=== PATIENT | female | born 1935 | race Hispanic/Latino ===

== ENCOUNTER 2018-02-17 14:55 | Emergency (ER) | payer MEDICARE ==
[~2018-02-17 14:55] MED LIST: ASPI-555 PO; ISOS30TA6 PO; METF-444 PO; METO-391 PO; NITR0.3T SL; SIMV40TA59 PO; SULF1TAB3 PO
[2018-02-17 15:24] LABS: BASOPHILS % (AUTO) 0.5 % (0.0-5.0); HEMATOCRIT 41.6 % (36-48); LYMPHOCYTES % (AUTO) 41.4 % (21.0-51.0); MEAN CORPUSCULAR HEMOGLOBIN 29.7 pg (27.0-33.0); MEAN CORPUSCULAR VOLUME 90.1 fL (79-99); MONOCYTES % (AUTO) 6.9 % (3.0-13.0); NEUTROPHILS % (AUTO) 49.2 % (40.0-77.0); PLATELET COUNT (AUTO) 128 K/uL (130-400); RED BLOOD CELL COUNT(AUTO) 4.62 MIL/uL (4.00-5.50); RED CELL DISTRIBUTION WIDTH 13.4 % (11.0-15.5)
[2018-02-17 15:37] LABS: CREATININE 0.7 mg/dL (0.5-1.5); POTASSIUM 3.7 mmol/L (3.5-5.1)
[2018-02-17 15:42] LABS: ALBUMIN 3.6 g/dL (3.5-5.0); BILIRUBIN,TOTAL 0.4 mg/dL (0.2-1.0); TOTAL PROTEIN, SERUM 6.8 g/dL (6.0-8.3)
[2018-02-17 16:15] LABS: APPEARANCE,URINE Clear (CLEAR); BILIRUBIN,URINE Negative (NEGATIVE); COLOR,URINE Yellow (YELLOW); GLUCOSE, URINE (UA) Negative (NEGATIVE); KETONES,URINE Negative (NEGATIVE); LEUKOCYTE ESTERASE ,URINE Negative (NEGATIVE); NITRATE,URINE Negative (NEGATIVE); OCCULT BLOOD,URINE Negative (NEGATIVE); PROTEIN,URINE Negative (NEGATIVE); UROBILINOGEN,URINE 0.2 mg/dL (0.2-1.0)
[2018-02-17] MEDS ORDERED: ACETAMINOPHEN 325 MG TAB ONE (16:44)
== END 2018-02-17 17:24 | disposition home or self-care (01) ==
LOC: EDH 14:55
DX: R51 Headache (principal); E11.9 Type 2 diabetes mellitus without complications; E78.5 Hyperlipidemia, unspecified; I10 Essential (primary) hypertension; M19.90 Unspecified osteoarthritis, unspecified site; Z88.1 Allergy status to other antibiotic agents
CPT/HCPCS: 36415; 70450; 80053; 81003; 83690; 85025; 93005

== ENCOUNTER 2018-12-12 18:08 | Emergency (ER) | payer MEDICARE ==
[2018-12-12 18:39] LABS: BASOPHILS % (AUTO) 0.9 % (0.0-5.0); EOSINOPHILS % (AUTO) 1.8 % (0.0-8.0); HEMATOCRIT 39.3 % (36-48); LYMPHOCYTES % (AUTO) 34.3 % (21.0-51.0); MEAN CORPUSCULAR HEMOGLOBIN 30.3 pg (27.0-33.0); MEAN CORPUSCULAR VOLUME 89.2 fL (79-99); NUCLEATED RED BLOOD CELLS 0.1 % (0.0-0.19); PLATELET COUNT (AUTO) 125 K/uL (130-400); RED CELL DISTRIBUTION WIDTH 13.5 % (11.0-15.5); WHITE BLOOD COUNT (AUTO) 6.2 K/uL (4.8-10.8)
[2018-12-12 18:44] LABS: CREATININE 0.7 mg/dL (0.5-1.5); POTASSIUM 3.9 mmol/L (3.5-5.1)
[2018-12-12 18:50] LABS: ALBUMIN 3.9 g/dL (3.5-5.0); BILIRUBIN,TOTAL 0.3 mg/dL (0.2-1.0); TOTAL PROTEIN, SERUM 6.7 g/dL (6.0-8.3)
[2018-12-12] MEDS ORDERED: ASPIRIN 325 MG TABLET ONE (18:50)
[2018-12-12] MEDS ORDERED: SODIUM CHLORIDE 0.9% 500ML 500 ML IV ONE (18:50)
[2018-12-12 18:53] LABS: APPEARANCE,URINE Clear (CLEAR); BILIRUBIN,URINE Negative (NEGATIVE); COLOR,URINE Yellow (YELLOW); GLUCOSE, URINE (UA) Negative (NEGATIVE); KETONES,URINE Negative (NEGATIVE); LEUKOCYTE ESTERASE ,URINE Trace (NEGATIVE); NITRATE,URINE Negative (NEGATIVE); OCCULT BLOOD,URINE Negative (NEGATIVE); PROTEIN,URINE Negative (NEGATIVE); UROBILINOGEN,URINE 0.2 mg/dL (0.2-1.0)
[2018-12-12 19:06] LABS: BACTERIA,URINE Rare /HPF (None Seen); RBC,URINE 0-1 /HPF (0-1)
[2018-12-12 19:07] LABS: SQUAMOUS EPITHELIAL CELL,UR Rare /HPF (0-2)
[2018-12-12 19:10] LABS: B-TYPE NATRIURETIC PEPTIDE 18 pg/mL (0-100)
== END 2018-12-12 21:40 | disposition home or self-care (01) ==
LOC: EDH 18:08
DX: R00.2 Palpitations (principal); R51 Headache; I10 Essential (primary) hypertension; E11.9 Type 2 diabetes mellitus without complications; E78.5 Hyperlipidemia, unspecified; M19.90 Unspecified osteoarthritis, unspecified site; Z90.49 Acquired absence of other specified parts of digestive tract; Z98.890 Other specified postprocedural states
CPT/HCPCS: 36415; 71045; 80053; 81001; 82550; 83880; 84484 ×2; 85025; 93005 ×2; 99285; J7040

== ENCOUNTER 2022-01-01 22:38 | Emergency (ER) | payer MEDICARE ==
[~2022-01-01] VITALS: Ht 144.8 cm; Wt 60.8 kg
[~2022-01-01 22:38] MED LIST changes: -ASPI-555 PO; +ASPI-556 PO; -ISOS30TA6 PO; +ISOS30TA92 PO
[2022-01-01 23:02] LABS: BASOPHILS % (AUTO) 0.4 % (0.0-5.0); EOSINOPHILS % (AUTO) 2.6 % (0.0-8.0); HEMATOCRIT 43.4 % (36-48); MEAN CORPUSCULAR HEMOGLOBIN 29.7 pg (27.0-33.0); MEAN CORPUSCULAR HGB CONC 34.1 g/dL (32.0-36.0); MONOCYTES % (AUTO) 7.6 % (3.0-13.0); PLATELET COUNT (AUTO) 152 K/uL (130-400); RED BLOOD CELL COUNT(AUTO) 4.99 MIL/uL (4.00-5.50); RED CELL DISTRIBUTION WIDTH 12.6 % (11.0-15.5); WHITE BLOOD COUNT (AUTO) 7.3 K/uL (4.8-10.8)
[2022-01-01 23:07] LABS: APPEARANCE,URINE CLEAR (CLEAR); BILIRUBIN,URINE NEGATIVE (NEGATIVE); COLOR,URINE YELLOW (YELLOW); GLUCOSE, URINE (UA) >=1000 mg/dL (NEGATIVE); KETONES,URINE NEGATIVE (NEGATIVE); LEUKOCYTE ESTERASE ,URINE NEGATIVE (NEGATIVE); NITRATE,URINE NEGATIVE (NEGATIVE); OCCULT BLOOD,URINE NEGATIVE (NEGATIVE); PROTEIN,URINE NEGATIVE (NEGATIVE); UROBILINOGEN,URINE 0.2 mg/dL (0.2-1.0)
[2022-01-01 23:14] LABS: CREATININE 0.9 mg/dL (0.5-1.5); POTASSIUM 3.9 mmol/L (3.5-5.1)
[2022-01-01 23:19] LABS: ALBUMIN 3.8 g/dL (3.5-5.0); TOTAL PROTEIN, SERUM 7.3 g/dL (6.0-8.3)
[2022-01-01 23:26] LABS: BACTERIA,URINE None Seen /HPF (None Seen); RBC,URINE None Seen /HPF (0-1); SQUAMOUS EPITHELIAL CELL,UR Rare /HPF (0-2)
[2022-01-01] MEDS ORDERED: KETOROLAC 15MG/ML VIAL (15MG/ML) ONE (23:55)
[2022-01-02] MEDS ORDERED: KETOROLAC 15MG/ML VIAL (15MG/ML) IV ONE
[2022-01-02] MEDS ORDERED: 0.9% NACL 500ML IV.SOLN 500 ML IV ONE
[2022-01-02 00:20] VITALS: BP 141/42
[2022-01-02] MEDS ORDERED: OSEL75 PO (00:21)
[2022-01-02] MEDS ORDERED: ACET-66 PO (00:21)
[2022-01-02] MEDS ORDERED: OSELTAMIVIR PHOSPHATE 75 MG CAP PO SCH (00:30)
== END 2022-01-02 00:34 | disposition home or self-care (01) ==
LOC: EDH 22:38
DX: J10.1 Influenza due to other identified influenza virus with other respiratory manifestations (principal); E86.0 Dehydration; Z20.822 Contact with and (suspected) exposure to COVID-19; E11.9 Type 2 diabetes mellitus without complications; I10 Essential (primary) hypertension; M19.90 Unspecified osteoarthritis, unspecified site; Z79.1 Long term (current) use of non-steroidal anti-inflammatories (NSAID); Z79.82 Long term (current) use of aspirin; Z79.84 Long term (current) use of oral hypoglycemic drugs; Z79.899 Other long term (current) drug therapy; Z88.1 Allergy status to other antibiotic agents; Z90.49 Acquired absence of other specified parts of digestive tract
CPT/HCPCS: 99285; 71045; 87635; 84484; 80053; 85025; 87804 ×2; 81001; 36415; 93005 ×2; 96374; C9803; J7040; J1885

== ENCOUNTER 2022-01-25 19:05 | Emergency (ER) | payer MEDICARE ==
[~2022-01-25] VITALS: Ht 134.6 cm; Wt 60.8 kg
[~2022-01-25 19:05] MED LIST changes: +ACET-66 PO; +OSEL75 PO
[2022-01-25 19:51] VITALS: BP 135/52
[2022-01-25] MEDS ORDERED: ACETAMINOPHEN 325 MG TAB PO ONE (20:00)
== END 2022-01-25 21:28 | disposition home or self-care (01) ==
LOC: EDH 19:05
DX: S80.02XA Contusion of left knee, initial encounter (principal); S80.01XA Contusion of right knee, initial encounter; M19.90 Unspecified osteoarthritis, unspecified site; E11.9 Type 2 diabetes mellitus without complications; I10 Essential (primary) hypertension; M81.0 Age-related osteoporosis without current pathological fracture; Z90.49 Acquired absence of other specified parts of digestive tract; Z98.890 Other specified postprocedural states; Z79.899 Other long term (current) drug therapy; Z79.84 Long term (current) use of oral hypoglycemic drugs; Z79.82 Long term (current) use of aspirin; Z88.1 Allergy status to other antibiotic agents; W01.0XXA Fall on same level from slipping, tripping and stumbling without subsequent striking against object, initial encounter; Y93.89 Activity, other specified; Y92.89 Other specified places as the place of occurrence of the external cause; Y99.8 Other external cause status

== ENCOUNTER 2022-06-11 18:07 | Emergency (ER) | payer OTHER, MEDICARE ==
[~2022-06-11] VITALS: Ht 147.3 cm; Wt 59.0 kg
[2022-06-11 19:18] LABS: BASOPHILS % (AUTO) 0.3 % (0.0-5.0); EOSINOPHILS % (AUTO) 0.2 % (0.0-8.0); HEMATOCRIT 37.3 % (36-48); MEAN CORPUSCULAR HEMOGLOBIN 29.6 pg (27.0-33.0); MEAN CORPUSCULAR HGB CONC 33.8 g/dL (32.0-36.0); MEAN CORPUSCULAR VOLUME 87.6 fL (79-99); MONOCYTES % (AUTO) 3.9 % (3.0-13.0); NEUTROPHILS % (AUTO) 90.3 % (40.0-77.0); PLATELET COUNT (AUTO) 144 K/uL (130-400); RED BLOOD CELL COUNT(AUTO) 4.26 MIL/uL (4.00-5.50); RED CELL DISTRIBUTION WIDTH 12.9 % (11.0-15.5); WHITE BLOOD COUNT (AUTO) 11.8 K/uL (4.8-10.8)
[2022-06-11 19:26] LABS: CREATININE 0.8 mg/dL (0.5-1.5); POTASSIUM 3.8 mmol/L (3.5-5.1)
[2022-06-11 19:36] LABS: ALBUMIN 3.1 g/dL (3.5-5.0); TOTAL PROTEIN, SERUM 6.4 g/dL (6.0-8.3)
[2022-06-11 19:43] VITALS: BP 121/58
[2022-06-11] MEDS ORDERED: OSEL75 PO (19:45)
[2022-06-11] MEDS ORDERED: AZIT250T9 PO (19:45)
[2022-06-11] MEDS ORDERED: ALBU90AE2 IH (19:45)
[2022-06-11] MEDS ORDERED: BENZ200C53 PO (19:45)
[2022-06-11] MEDS ORDERED: ACETAMINOPHEN 500 MG TABLET PO ONE (20:00)
[2022-06-11] MEDS ORDERED: OSELTAMIVIR PHOSPHATE 75 MG CAP PO ONE (20:00)
[2022-06-11] MEDS ORDERED: AZITHROMYCIN 250 MG TABLET PO SCH (20:00)
== END 2022-06-11 20:21 | disposition home or self-care (01) ==
LOC: EDH 18:07
DX: J10.00 Influenza due to other identified influenza virus with unspecified type of pneumonia (principal); M19.90 Unspecified osteoarthritis, unspecified site; I10 Essential (primary) hypertension; E78.00 Pure hypercholesterolemia, unspecified; E11.9 Type 2 diabetes mellitus without complications; Z20.822 Contact with and (suspected) exposure to COVID-19; Z88.1 Allergy status to other antibiotic agents; Z79.899 Other long term (current) drug therapy; Z90.49 Acquired absence of other specified parts of digestive tract; Z79.82 Long term (current) use of aspirin; Z79.84 Long term (current) use of oral hypoglycemic drugs; Z96.653 Presence of artificial knee joint, bilateral
CPT/HCPCS: 99285; 84484; 80053; 85025; 87804 ×2; 36415; 87635; 71045; 93005; C9803

== ENCOUNTER 2022-11-30 17:42 | Emergency (ER) | payer OTHER, MEDICARE ==
[~2022-11-30] VITALS: Ht 142.2 cm; Wt 60.8 kg
[~2022-11-30 17:42] MED LIST changes: +ALBU90AE2 IH; +AZIT250T9 PO; +BENZ200C53 PO
[2022-11-30] MEDS ORDERED: LIDOCAINE HCL 1% 20 ML VIAL ONE (22:37)
[2022-11-30] MEDS ORDERED: ACETAMINOPHEN 325 MG TAB PO ONE (23:00)
[2022-12-01] MEDS ORDERED: NAPR-1192 PO (00:26)
[2022-12-01 00:50] VITALS: BP 147/72
== END 2022-12-01 00:57 | disposition home or self-care (01) ==
LOC: EDH 17:42
DX: S61.012A Laceration without foreign body of left thumb without damage to nail, initial encounter (principal); S60.012A Contusion of left thumb without damage to nail, initial encounter; E78.00 Pure hypercholesterolemia, unspecified; I10 Essential (primary) hypertension; Z79.82 Long term (current) use of aspirin; Z79.84 Long term (current) use of oral hypoglycemic drugs; Z79.899 Other long term (current) drug therapy; Z88.1 Allergy status to other antibiotic agents; W23.0XXA Caught, crushed, jammed, or pinched between moving objects, initial encounter; Y93.89 Activity, other specified; Y92.89 Other specified places as the place of occurrence of the external cause; Y99.8 Other external cause status
CPT/HCPCS: 12001; 73120

== ENCOUNTER 2023-08-04 15:07 | Emergency (ER) | payer OTHER, MEDICARE ==
[~2023-08-04] VITALS: Ht 152.4 cm; Wt 59.0 kg
[~2023-08-04 15:07] MED LIST changes: +NAPR-1192 PO
[2023-08-04 15:19] VITALS: BP 131/75; PULSE 100; RESP 14; O2SAT 96
[2023-08-04] MEDS: ACETAMINOPHEN 325 MG TAB PO ONE (16:30)
[2023-08-04] MEDS ORDERED: MELO-106 PO (18:40)
[2023-08-04] MEDS ORDERED: NEOM28.36 TP (18:40)
[2023-08-04] MEDS ORDERED: NEOMY SULF/BACITRA/POLYMYXIN B 1 EACH PACKET TP ONE (18:50)
== END 2023-08-04 19:48 | disposition home or self-care (01) ==
LOC: EDH 15:07
DX: S60.312A Abrasion of left thumb, initial encounter (principal); S60.222A Contusion of left hand, initial encounter; S40.012A Contusion of left shoulder, initial encounter; S40.022A Contusion of left upper arm, initial encounter; S80.01XA Contusion of right knee, initial encounter; M19.90 Unspecified osteoarthritis, unspecified site; E78.00 Pure hypercholesterolemia, unspecified; I10 Essential (primary) hypertension; Z79.82 Long term (current) use of aspirin; Z79.899 Other long term (current) drug therapy; Z79.84 Long term (current) use of oral hypoglycemic drugs; Z88.1 Allergy status to other antibiotic agents; W18.39XA Other fall on same level, initial encounter; Y93.89 Activity, other specified; Y92.89 Other specified places as the place of occurrence of the external cause; Y99.8 Other external cause status
CPT/HCPCS: 73030; 73060; 73130; 73562

== ENCOUNTER 2025-05-13 14:56 | Emergency (ER) | payer OTHER, MEDICAID ==
[~2025-05-13] VITALS: Ht 144.8 cm; Wt 54.4 kg
[~2025-05-13 14:56] MED LIST changes: -ALBU90AE2 IH; +ALBU90AE3 IH; +MELO-106 PO; +NEOM28.36 TP
[2025-05-13] MEDS ORDERED: CLIN-141 PO (15:02)
--- NOTE | 2025-05-13 15:03 | ERN ---
ED Note History of Present Illness Stated Complaint: TOOTHACHE, BROKEN TOOTH Chief Complaint: Tooth Ache/Pain Time Seen by MD: 14:57 Dictation: PATIENT IS AN 89-YEAR-OLD FEMALE HERE WITH HER WITH COMPLAINTS OF A LOST CROWN AND TOOTH FRACTURE TO TOOTH 19. LAST WEEK. SHE HAS HAD NO FEVER NO CHILLS NO FACIAL SWELLING. WENT TO HER DENTIST THIS MORNING AND TOLD HER THAT SHE WOULD HAVE TO MAKING APPOINTMENT SO SHE CAME TO THE EMERGENCY ROOM FOR PAIN MANAGEMENT ON-CALL PRIMARY CARE DOCTORS [facility] SHE SAID SHE HAS NOT BEEN THERE. Allergies: Coded Allergies: ciprofloxacin (Unverified Allergy, Unknown, 05/07/15) Home Meds Active Scripts Clindamycin HCl (Clindamycin HCl) 300 Mg Capsule, 1 CAP PO QID for 10 Days, #40 CAP 0 Refills Prov:KAMRYN MCKAY PROGRAM ARRANGER 05/13/25 Neomy Sulf/Bacitrac Zn/Poly (Neosporin Ointment) 3.5 Mg-400 Unit-5,000 Unit/Gram Oint...g., 1 APPL TP BID for 10 Days, #15 GM Prov:AWAIS DOWLING DO 08/04/23 Meloxicam (Meloxicam) 7.5 Mg Tablet, 7.5 MG PO DAILY for 30 Days, #30 TAB Prov:AWAIS DOWLING DO 08/04/23 Naproxen (Naproxen) 375 Mg Tablet, 375 MG PO BID for 10 Days, #20 TAB 0 Refills Prov:CHEMA LIU 12/01/22 Oseltamivir Phosphate (Tamiflu) 75 Mg Cap, 75 MG PO BID for 5 Days, #10 CAP Prov:MEMO COTTONP 06/11/22 Benzonatate (Benzonatate) 200 Mg Capsule, 200 MG PO TID PRN for COUGH for 14 Days, #42 CAP Prov:MEMO COTTON V PROGRAM ARRANGER 06/11/22 Azithromycin (Azithromycin) 250 Mg Tablet, 250 MG PO DAILY for 5 Days, #6 TAB Take 1 daily until complete. Prov:MEMO COTTON V PROGRAM ARRANGER 06/11/22 Albuterol Sulfate (Proair Digihaler) 90 Mcg Aer.pw.bas, 90 MCG IH QID PRN for WHEEZING, #1 INHALER Prov:MEMO COTTON V PROGRAM ARRANGER 06/11/22 Acetaminophen (Acetaminophen) 500 Mg Tablet, 1000 MG PO QID for FEVER, #50 TAB Prov:MAKENNA REHMAN MD 01/02/22 Oseltamivir Phosphate (Tamiflu) 75 Mg Cap, 75 MG PO BID for 5 Days, #10 CAP Prov:MAKENNA REHMAN MD 01/02/22 Reported Medications Sulfamethoxazole/Trimethoprim (Sulfamethoxazole-Tmp Ds Tablet) 1 Each Tablet, 1 EACH PO BID, #7 TAB 05/07/15 Aspirin (Aspir 81) 81 Mg Tablet.dr, 81 MG PO DAILY, TAB 05/07/15 Metformin HCl (Metformin HCl) 500 Mg Tablet, 500 MG PO BID, TAB 05/07/15 Isosorbide Mononitrate (Isosorbide Mononitrate ER) 30 Mg Tab.er.24h, 30 MG PO DAILY, TAB 05/07/15 Simvastatin (ZOCOR) 40 Mg Tablet, 40 MG PO HS, TAB 05/07/15 Nitroglycerin (Nitrostat) 0.3 Mg Tab.subl, 0.2 MG SL AD for CHEST PAIN, #3 TAB.SL 05/07/15 Metoprolol Succinate (Metoprolol Succinate) 50 Mg Tab.er.24h, 50 MG PO DAILY, TAB 05/07/15 Past Medical History Past Medical History: Arthritis, High Cholesterol, Hypertension Additional Past Medical Hx: OSTEOPOROSIS Surgical History: Other Surgical History Other: STEVEN KNEE REPLACEMENTS Social History: Negative, Lives with family History: Not Applicable RN Note Reviewed/Agreed w/PFSH: Yes Review of System Dictation CONSTITUTIONAL: NEGATIVE EXCEPT FOR HPI HEAD/FACE: NEGATIVE EXCEPT FOR HPI EENT: NEGATIVE EXCEPT FOR HPI FRACTURE TOOTH MISSING CROWN RESPIRATORY: NEGATIVE EXCEPT FOR HPI GASTROINTESTINAL/ABDOMINAL: NEGATIVE EXCEPT FOR HPI GENITOURINARY: NEGATIVE EXCEPT FOR HPI MUSCULOSKELETAL: NEGATIVE EXCEPT FOR HPI INTEGUMENTARY: NEGATIVE EXCEPT FOR HPI NEUROLOGICAL/PSYCH: NEGATIVE EXCEPT FOR HPI HEMATOLOGIC/LYMPHATIC: NEGATIVE EXCEPT FOR HPI ALL SYSTEMS NEGATIVE, EXCEPT NOTED ABOVE. 13 POINT REVIEW OF SYSTEMS ASSESSED AND ALL NEGATIVE EXCEPT FOR ABOVE. Initial Vital Sign VS Vital Signs Date Time Temp Pulse Resp B/P (MAP) Pulse Ox O2 Delivery O2 Flow Rate FiO2 05/13/25 14:57 98.8 88 16 164/72 99 Room Air 0 05/13/25 15:26 21 Physical Exam Dictation VITAL SIGNS REVIEWED GENERAL APPEARANCE: ALERT, ORIENTED X 3, NO ACUTE DISTRESS, WELL DEVELOPED, NOURISHED. HEAD AND FACE: NON-TRAUMATIC. EYES: PERRL, PINK CONJUNCTIVAS, EYELID NO TRAUMA, ANTERIOR CHAMBER WITH ARCUS SENILIS. EARS: PINNAS INTACT AND NO SIGNS OF TRAUMA OR ERYTHEMA EAR CANALS CLEAR AND NO D ISCHARGE TM NO ERYTHEMA NOSE: NO DISCHARGE, NO BLEEDING. OROPHARYNX: MOUTH NORMAL, TONGUE PINK, MISSING TOOTH WITH CROWN MISSING 19. WE WILL GINGIVAL ERYTHEMA PHARYNX CLEAR,NO ERYTHEMA, TONSILS NO EXUDATES, NO ABSCESSES NOTED, MUCOUS MEMBRANE MOIST NECK: SUPPLE, NON-TENDER, NO THYROMEGALY, NO MASSES, NO JVD, NO BRUITS BREAST:DEFERRED CHEST:NO TENDERNESS, NO CREPITUS, NO PARADOXICAL MOVEMENT, NO RETRACTIONS LUNGS:CLEAR, WELL-VENTILATED, SYMMETRIC, NO RALES, NO WHEEZING, NO RHONCHI, NO STRIDOR, GOOD BREATH SOUNDS BILATERALLY HEART: REGULAR RATE, REGULAR RHYTHM, NO MURMUR, NO GALLOPS VASCULAR: NO PERIPHERAL EDEMA, ABDOMEN: SOFT, POSITIVE BOWEL SOUNDS, NONDISTENDED, NO GUARDING, NONTENDER, NO REBOUND, NO MASSES NO HEPATOMEGALY, NO SPLENOMEGALY, NO NEGRON'S SIGN, NO HERNIAS. RECTAL: DEFERRED GENITAL: DEFERRED NEUROLOGICAL: NORMAL SPEECH, MOTOR FUNCTION INTACT, SENSORY FUNCTION INTACT MUSCULOSKELETAL: NECK NONTENDER, FULL RANGE OF MOTION, BACK NONTENDER, FULL RANGE OF MOTION, EXTREMITIES: NONTENDER, FULL RANGE OF MOTION SKIN: COLOR PINK, DRY, NO TURGOR, NO RASH, NO LACERATIONS, NO ABRASIONS, NO CONTUSIONS. LYMPHATIC: DEFERRED Results (Laboratory/Radiology) Labs Reviewed?: Yes ED Course ED Course Orders Procedure Category Date Status Time Acetaminophen 500mg PHA 05/13/25 Complete Tab (Tylenol 500mg T 15:00 Current Medications Medications (Trade) Dose Ordered Sig/Dorys Route PRN Reason Start Time Stop Time Status Last Admin Dose Admin Acetaminophen (TYLenol 500MG TAB) 1,000 mg ONCE ONCE PO 05/13/25 15:00 05/13/25 15:03 DC 05/13/25 15:21 Vital Signs Date Time Temp Pulse Resp B/P (MAP) Pulse Ox O2 Delivery O2 Flow Rate FiO2 05/13/25 15:26 98.8 82 16 153/68 99 Room Air* 0 21 05/13/25 14:57 98.8 88 16 164/72 99 Room Air 0 Medical Decision Making MDM 1502/NO LABS OR IMAGING INDICATED. MEDICAL DECISION-MAKING BASED ON HPI AND ASSESSMENT PATIENT WILL BE PROVIDED WITH CLINDAMYCIN TOLD SEE HER DOCTOR AT [facility] HER DENTIST FOR FOLLOW UP DX & DISP Disposition: Discharge Departure Impression: Primary Impression: Tooth fracture Condition: Stable Scripts Clindamycin HCl (Clindamycin HCl) 300 Mg Capsule 1 CAP PO QID for 10 Days, #40 CAP 0 Refills Prov: KAMRYN MCKAY 05/13/25 Additional Instructions: FOLLOW-UP WITH PRIMARY CARE PROVIDER IN 1 TO 2 DAYS. TAKE MEDICATIONS DIRECTED HERE IN THE EMERGENCY ROOM. OKAY TO CONTINUE HOME MEDICATIONS UNLESS OTHERWISE DISCUSSED DURING YOUR VISIT IN THE EMERGENCY ROOM TODAY. RETURN TO YOUR NEAREST EMERGENCY ROOM IF SYMPTOMS WORSEN OR IF THERE IS NO IMPROVEMENT. CALL 911 IF YOU NEED IMMEDIATE ASSISTANCE. TAKE TYLENOL OR MOTRIN [id number] NEEDED AND IF NO CONTRAINDICATIONS ARE PRESENT. INCREASE ORAL HYDRATION. A WOUND CULTURE OR URINE CULTURE WAS ORDERED HERE IN THE EMERGENCY ROOM DEPARTMENT PLEASE FOLLOW-UP WITH PRIMARY CARE PROVIDER AND ADVISE THEM TO GET REPEAT PORTS FROM OUR FACILITY. IF YOU HAD ANY JOANNE WRAP/SPLINTS THAT WERE APPLIED HERE, PLEASE DO NOT REMOVE THEM UNTIL YOU SEE YOUR PRIMARY CARE OR SPECIALTY. TAKE CLINDAMYCIN DIRECTED UNTIL GONE. TAKE TWO CAPSULES FOR THE 1ST DOSE THEN ONE CAPSULE EVERY 6 HOURS DIRECTED UNTIL GONE. TAKE IBUPROFEN OR ADVIL [id number] NEEDED FOR PAIN. SEE YOUR DENTIST FOR FOLLOW UP AND MANAGEMENT OR GO TO YOUR DOCTOR AT [facility] Referrals: JILL LARA DO (PCP) Time of Disposition: 15:02 I have reviewed the case, and I agree with, Diagnosis and Plan I performed a substantive portion of the visit. I have reviewed and personally made and approve the management plan that is documented in the notes by myself with ESTHER/resident. I acknowledged full responsibility for the patient's management plan. KAMRYN MCKAY May 13, 2025 15:03 SURJIT WONG DO May 13, 2025 17:03
[2025-05-13 15:26] VITALS: BP 153/68; PULSE 82; RESP 16; TEMP 98.8; O2SAT 99
== END 2025-05-13 15:41 | disposition home or self-care (01) ==
LOC: EDH 14:56
DX: S02.5XXA Fracture of tooth (traumatic), initial encounter for closed fracture (principal); I10 Essential (primary) hypertension; E78.00 Pure hypercholesterolemia, unspecified; M19.90 Unspecified osteoarthritis, unspecified site; M81.0 Age-related osteoporosis without current pathological fracture; Z88.1 Allergy status to other antibiotic agents; Z79.899 Other long term (current) drug therapy; Z79.84 Long term (current) use of oral hypoglycemic drugs; Z79.82 Long term (current) use of aspirin; Z79.1 Long term (current) use of non-steroidal anti-inflammatories (NSAID); Z96.653 Presence of artificial knee joint, bilateral; X58.XXXA Exposure to other specified factors, initial encounter; Y93.89 Activity, other specified; Y92.89 Other specified places as the place of occurrence of the external cause; Y99.8 Other external cause status
CPT/HCPCS: 99283